=== PATIENT | male | born 1965 | race American Indian/Alaskan Native ===

== ENCOUNTER 2017-06-30 01:30 | Emergency (ER) | payer OTHER ==
[2017-06-30] MEDS ORDERED: XYLOCAINE 2%/ EPI 1:200,000 INFILTRATI ONE (01:50)
[2017-06-30] MEDS ORDERED: NACL 0.9% IR ONE (01:50)
[2017-06-30] MEDS ORDERED: NACL 0.9% 500 ML IR ONE (01:57)
[2017-06-30] MEDS ORDERED: KEPPRA 1,000 MG/NS 0.75% 100ML 1,000 MG/100 ML BAG IV ONE (02:07)
--- NOTE | 2017-06-30 02:10 | Emergency Department Report ---
<KHOA ABRAHAM - Last Filed: 06/30/17 02:10> ED Seizure HPI - General Chief Complaint: Seizure Stated Complaint: SEIZURE/ HEAD LACERATION Time Seen by Provider: 06/30/17 02:06 - Related Data Previous Rx's Medication Instructions Recorded Last Taken Type levETIRAcetam [Keppra TAB] 500 mg PO BID #60 tablet 06/30/17 Unknown Rx Allergies Allergy/AdvReac Type Severity Reaction Status Date / Time No Known Allergies Allergy Verified 06/30/17 01:51 ED Review of Systems ROS: Stated complaint: SEIZURE/ HEAD LACERATION Other details as noted in HPI ED Past Medical Hx - Medications Home Medications: Home Medications Medication Instructions Recorded Confirmed Last Taken Type levETIRAcetam [Keppra TAB] 500 mg PO BID #60 tablet 06/30/17 Unknown Rx ED Course Vital Signs 06/30/17 06/30/17 02:24 02:27 Temperature 98.3 F Pulse Rate 79 Respiratory 20 20 Rate Blood Pressure 111/68 [Right] O2 Sat by Pulse 99 99 Oximetry - Laceration /Wound Repair Left Upper Face Wound Location: face Wound Length (cm): 3 Wound's Depth, Shape: into muscle, linear Wound Explored: clean Anesthesia: Lidocaine w/ Epi Volume Anesthetic (ccs): 5 Wound Debrided: minimal Suture Size/Type: 4:0 Number of Sutures: 4 Layer Closure?: No Sterile Dressing Applied?: Yes Progress: laceration irrigated with 750 cc sterile saline at adequate pressure. wound then anesthetized with 2 % lidocaine with epi, and explored on a bloodless field. no foreign body noted. wound then closed with 4 interrupted 4-0 monofilament sutures with good cosmetic approximation, patient tolerated well Critical care attestation.: If time is entered above; I have spent that time in minutes in the direct care of this critically ill patient, excluding procedure time. ED Disposition Clinical Impression: Seizure, Noncompliance with medication regimen, Face lacerations Disposition: - TO HOME OR SELFCARE Condition: Stable Instructions: Recurrent Seizures Adult (ED), Laceration (ED) Additional Instructions: The stitches need to be removed in 5 days. Take the seizure medication daily as prescribed. Follow-up with neurologist as outpatient. Prescriptions: levETIRAcetam [Keppra TAB] 500 mg PO BID #60 tablet Referrals: CHELE STERLING MD [Staff Physician] - 3-5 Days (neurology ) ISABELLA CHING MD [Staff Physician] - 3-5 Days (neurolgy ) <EAMON HAYDEN - Last Filed: 06/30/17 04:30> ED Seizure HPI - General Source: patient, EMS Mode of arrival: Stretcher Limitations: No Limitations - History of Present Illness Initial Comments: 52-year-old male with a past medical history seizure disorder currently in police custody from the custodial presents to the hospital with seizure. Patient has been incarcerated for about one week. Per bystander seizure last approximately 45 seconds the patient fell out of bed and hit his head on the floor causing a left forehead laceration. He states his seizure medication has been on hold since Thursday (past 4 days). He cannot recall the name of the medication. Last seizure was several months ago. Patient denies preceding symptoms but states seizures typically occur in his sleep. Patient complains of mild lower back pain since lying on stretcher denies headache, neck pain, or preceding seizure symptoms. No complaints of focal weakness or numbness. Patient states he does drink beer on occasion and denies history of alcohol withdrawal tremors or seizures. ED Review of Systems Comment: All other systems reviewed and negative Other: Constitutional: No fevers chills Eyes: No eye pain visual changes ENT: No ear pain or throat pain Neck: Denies pain Respiratory: Denies cough wheezing shortness of breath Cardiovascular: Denies chest pain, palpitations, syncope GI: Denies abdominal pain, nausea, vomiting, diarrhea, : Denies dysuria Musculoskeletal: Denies back pain Skin: Denies rash, lesions, erythema Neurologic: Denies headache, numbness, weakness Psychiatric: Denies suicidal ideation, hallucinations ED Past Medical Hx - Past Medical History Previous Medical History?: Yes Hx Seizures: Yes - Surgical History Past Surgical History?: No - Social History Smoking Status: Never Smoker Substance Use Type: Alcohol ED Physical Exam - General Limitations: No Limitations - Other Other exam information: General: No limitations, patient is alert in no acute distress Head exam: Left upper forehead 3 cm laceration Eyes exam: Normal appearance, pupils equal reactive to light, extraocular movements intact ENT: Moist mucous membrane, normal oropharynx Neck exam: Normal inspection, full range of motion, no meningismus nontender Respiratory exam: Clear to auscultation bilateral, no wheezes, rales, crackles Cardiovascular: Normal rate and rhythm, normal heart sounds Abdomen: Soft, nondistended, and nontender, with normal bowel sounds, no rebound, or guarding Extremity: Full range of motion normal inspection no deformity Back: Normal Inspection, full range of motion, no tenderness Neurologic: Alert, oriented x3, cranial nerves intact, no motor or sensory deficit Psychiatric: normal affect, normal mood Skin: Warm, dry, intact ED Course Vital Signs 06/30/17 06/30/17 02:24 02:27 Temperature 98.3 F Pulse Rate 79 Respiratory 20 20 Rate Blood Pressure 111/68 [Right] O2 Sat by Pulse 99 99 Oximetry ED Medical Decision Making - Lab Data Result diagrams: 06/30/17 02:12 06/30/17 02:12 Lab Results 06/30/17 06/30/17 Range/Units 02:12 02:12 WBC 8.2 (4.5-11.0) K/mm3 RBC 3.92 (3.65-5.03) M/mm3 Hgb 11.8 (11.8-15.2) gm/dl Hct 34.0 L (35.5-45.6) % MCV 87 (84-94) fl MCH 30 (28-32) pg MCHC 35 H (32-34) % RDW 12.8 L (13.2-15.2) % Plt Count 188 (140-440) K/mm3 Lymph % (Auto) 24.6 (13.4-35.0) % [place] % (Auto) 6.8 (0.0-7.3) % Eos % (Auto) 0.7 (0.0-4.3) % Baso % (Auto) 0.3 (0.0-1.8) % Lymph # 2.0 (1.2-5.4) K/mm3 [place] # 0.6 (0.0-0.8) K/mm3 Eos # 0.1 (0.0-0.4) K/mm3 Baso # 0.0 (0.0-0.1) K/mm3 Seg Neutrophils % 67.6 (40.0-70.0) % Seg Neutrophils # 5.6 (1.8-7.7) K/mm3 Sodium 143 (137-145) mmol/L Potassium 4.6 (3.6-5.0) mmol/L Chloride 107.0 (98-107) mmol/L Carbon Dioxide 26 (22-30) mmol/L Anion Gap 15 mmol/L BUN 9 (9-20) mg/dL Creatinine 0.7 L (0.8-1.5) mg/dL Estimated GFR > 60 ml/min BUN/Creatinine Ratio 13 % Glucose 91 (75-100) mg/dL Calcium 8.3 L (8.4-10.2) mg/dL Magnesium 2.00 (1.7-2.3) mg/dL - Radiology Data Radiology results: report reviewed (CT head: No acute findings) - Medical Decision Making No further seizure activity. Patient received IV Keppra. No significant lab abnormality. CT head without acute findings. Will be discharged back to the custodial laceration repaired by Dr abraham but seen and evaluated by myself (Dr Hayden) - Differential Diagnosis seizure, medication noncompliance, electrolyte abnl Critical Care Time: No ED Disposition Is pt being admited?: No Does the pt Need Aspirin: No Time of Disposition: 04:28
[2017-06-30 02:25] LABS: Basophils % (Auto) 0.3 % (0.0-1.8); Eosinophils % (Auto) 0.7 % (0.0-4.3); Hemoglobin 11.8 gm/dl (11.8-15.2); Mean Corpuscular HGB Conc 35 % (32-34); Mean Corpuscular Hemoglobin 30 pg (28-32); Mean Corpuscular Volume 87 fl (84-94); Platelet Count 188 K/mm3 (140-440); Red Blood Count 3.92 M/mm3 (3.65-5.03); Red Cell Distribution Width 12.8 % (13.2-15.2); White Blood Count 8.2 K/mm3 (4.5-11.0)
[2017-06-30 02:43] LABS: Anion Gap 15 mmol/L; BUN/Creatinine Ratio 13; Blood Urea Nitrogen 9 mg/dL (9-20); Calcium 8.3 mg/dL (8.4-10.2); Carbon Dioxide 26 mmol/L (22-30); Glucose 91 mg/dL (75-100); Potassium 4.6 mmol/L (3.6-5.0); Sodium 143 mmol/L (137-145)
--- NOTE | 2017-06-30 03:59 | Cat Scan Report ---
FINAL REPORT EXAM: CT HEAD/BRAIN WO CON HISTORY: seizure, head injury, laceration TECHNIQUE: Routine axial imaging was obtained the brain without IV contrast. FINDINGS: There are no attenuation abnormalities. The ventricular system is appropriate in size and is symmetric. The visualized sinuses are clear. There is no evidence of skull fracture or scalp injury. IMPRESSION: Normal exam.
[2017-06-30] MEDS ORDERED: NACL 0.9% 1000 ML 1,000 ML IV ONE (04:45)
[2017-06-30] MEDS ORDERED: NACL 0.9% 1000 ML 1,000 ML ONE (04:49)
[2017-06-30 05:30] VITALS: BP 105/66
== END 2017-06-30 05:40 | disposition home or self-care (01) ==
LOC: ED 01:30
DX: S01.81XA Laceration without foreign body of other part of head, initial encounter (principal); G40.909 Epilepsy, unspecified, not intractable, without status epilepticus; X58.XXXA Exposure to other specified factors, initial encounter; Y93.89 Activity, other specified; Y92.89 Other specified places as the place of occurrence of the external cause; Y99.8 Other external cause status
CPT/HCPCS: 12013; 36415; 70450; 80048; 83735; 85025; 96365; 96366; 99285; J1953; J7030